=== PATIENT | male | born 1995 | race Caucasian/White ===

== ENCOUNTER 2021-10-27 22:38 | Emergency (ER) | payer MEDICAID, SELFPAY ==
[2021-10-27 22:49] VITALS: PULSE 97; RESP 16; TEMP 37.1; O2SAT 97; BMI 23.0
[2021-10-28 00:05] LABS: Rapid Strep A Test Negative (Negative)
--- NOTE | 2021-10-28 01:13 | W.ED.GENADLT ---
HPI - General Adult General: Chief complaint: General Medical Stated complaint: Sore throat\Chills\weak Time Seen by Provider: 10/28/21 00:41 History of Present Illness: HPI narrative: 26-year-old healthy male who is been sick today. He has had a sore throat. Mild trouble swallowing. Achy, says his eyes burn. Minimal cough or congestion. Onset (ago): day(s) (1) Location: neck Radiation: non-radiation Severity: moderate Quality: stabbing and aching Pain Consistency: constant Relieving factors: none Exacerbating factors: none Associated symptoms: Reports fevers/chills and headache(s); Deny chest pain, confusion, cough, diaphoresis, dyspnea, nausea, rash, palpitations, short of breath or vomiting Review of Systems Const: Denies: diaphoresis Card: Denies: chest pain or palpitations Resp: Denies: dyspnea GI: Denies: nausea or vomiting Skin/Breast: Denies: rash Neuro: Reports: headache(s); Denies: confusion Physical Exam Const: COMMON NORMALS: no acute distress, patient oriented x3 and alert HENMT: COMMON NORMALS: normocephalic, external ears normal and Normal external nose present HEAD & SCALP: normocephalic FACE & SINUS: normal facial exam NOSE: Normal external nose present and Normal nares present EXTERNAL EAR: Yes external ears normal TYMPANIC MEMBRANE: unable to visualize TM (Cerumen impaction bilateral) MOUTH: Normal oral and palatal mucosa present THROAT: abnormal tonsil bilateral erythema, exudates and hypertrophy and uvula laterally displaced to the left (Minimal) Eye: COMMON NORMALS: Equal, round and reactive pupils present and EOMs intact bilaterally CONJUNCTIVA: Yes conjunctival abnormal (Minimal injection) PUPIL: Yes Equal, round and reactive pupils present Chest: COMMONS NORMALS: normal inspection of the chest Resp: COMMON NORMALS: normal respiratory effort, No use of accessory muscles and clear to auscultation bilaterally AUSCULTATION: clear to auscultation bilaterally Cardio: COMMON NORMALS: regular rate and regular rhythm RATE: regular rate RHYTHM: regular rhythm GI: COMMON NORMALS: Normal to inspection, nondistended, normoactive bowel sounds present Neuro: COMMON NORMALS: patient oriented x3 SENSORIUM/ORIENTATION: Yes alert Course Vital Signs: Vital signs: Vital Signs Temperature 98.8 F 10/27/21 22:49 Pulse Rate 97 10/27/21 22:49 Respiratory Rate 16 10/27/21 22:49 Pulse Oximetry 97 10/27/21 22:49 MDM - General Adult MDM Narrative: Medical decision making narrative: Patient does have minimal uvular displacement to the left. There is no clear tonsillar abscess. He can swallow easily. He is afebrile. There is no trismus and be given a dose of steroids here, and placed on antibiotics. This is to cover for potential peritonsillar abscess. He will return if he worsens at all for further imaging if needed. Lab Data: Labs: Lab Results 10/27/21 23:24 Group A Strep Rapi d Negative (Negative) Discharge Plan Discharge Patient Disposition: Home Clinical Impression: Pharyngitis Qualifiers: Pharyngitis/tonsillitis etiology: unspecified etiology Qualified Code(s): J02.9 - Acute pharyngitis, unspecified Condition: Stable Prescriptions: New cephalexin 500 mg capsule 500 mg PO Q6H 10 Days Qty: 40 RF: 0 Discharge Orders: Discharge ED (Routine); Ordered 10/28/21 Ordered By: Simba Ramos Discharge Diet: Advance as tolerated Discharge Activity: Limit activity as instructed Patient Instructions: Pharyngitis (ED) Activity Restrictions/Additional Instructions: Return to the ER for worsening pain despite treatment, worsening in your ability to swallow or handle liquids or solid food, extreme pain with opening your mouth or jaw, fever despite 3-4 doses of antibiotics, other concerning symptoms. Coding Level of Care Code ED Lean Consultant for Benji Kelly
[2021-10-28] MEDS: dexamethasone 4 mg Tablet 10 MG PO (01:51)
[2021-10-28] MEDS: cephALEXin 500 mg Capsule 1000 MG PO (01:51)
[2021-10-28 01:59] VITALS: BP 118/77; PULSE 77; RESP 18; O2SAT 98
[2021-10-29 18:38] LABS: Quest SARS-CoV-2 RNA DETECTED (NOT DETECTED)
--- NOTE | 2021-10-30 08:46 | PC.NURSE ---
Attempted to contacted pt to give results. Has No Voicemail set up.
--- NOTE | 2021-10-30 17:50 | PC.NURSE ---
Pt notified of Positive COVID.
== END 2021-10-28 01:56 | disposition home or self-care (01) ==
PROVIDERS: Physician Assistant; Emergency Provider Emergency Medicine
DX: J02.9 Acute pharyngitis, unspecified (principal); Z20.822 Contact with and (suspected) exposure to COVID-19
CPT/HCPCS: 87081; 87635; 87880; 99283; J8540

== ENCOUNTER 2022-04-12 06:27 | Emergency (ER) | payer BC, MEDICAID, SELFPAY ==
[2022-04-12 06:34] VITALS: BP 148/80; PULSE 106; RESP 20; TEMP 36.9; O2SAT 97; BMI 23.7
--- NOTE | 2022-04-12 06:40 | XR_ITS ---
WS: [id number] Portable AP upright chest, 04/12/2022 Clinical Data: dyspnea/cough Comparison: None. Findings: No nodules, masses or effusions are seen. The heart is normal. The pulmonary vascularity is not increased. No pneumonia or pneumothorax is seen. XR/XR chest 1V portable [id number] Impression: Negative chest.
--- NOTE | 2022-04-12 07:16 | ED_ITS ---
HPI - URI/Sore Throat General: Chief Complaint: Upper Respiratory Infection Stated Complaint: Coughing, runny nose, pressure in chest Time Seen by Provider: 04/12/22 06:31 Source: patient Mode of arrival: ambulatory History of Present Illness: 26-year-old male presents emergency room with complaint of cough runny nose congestion mildly productive cough been going on for a week he tried a few rqrw-fca-[id number] medications with no relief. He has had some loose stools he is not had any anosmia. He did have COVID in October 2021. He has no history of asthma. MD elicited complaint: cough Onset (ago): week(s) (1) Consistency: constant Severity: mild Description of mucous: clear Able to tolerate fluids by mouth: Yes Exacerbating factors: nothing Relieving factors: nothing Associated symptoms: Reports chills, congestion, cough, diarrhea, fever(s), nausea, rhinorrhea and sore throat; Deny abdominal pain, change in voice, chest pain, epistaxis, ear or mastoid pain, headache(s), myalgias, nasal congestion, rash, short of breath, sinus pain, stiffness or vomiting Treatments prior to arrival: acetaminophen and ibuprofen Review of Systems Const: Reports: fever(s), chills and body aches ENMT: Reports: throat pain; Denies: ear or mastoid pain, nasal congestion, epistaxis or sinus pain Card: Denies: chest pain Resp: Reports: dyspnea and productive cough; Denies: non-productive cough GI: Reports: nausea and diarrhea; Denies: abdominal pain or vomiting : Denies: flank pain, difficulty urinating, dysuria, urinary frequency or urinary urgency Skin/Breast: Denies: rash or pruritus Neuro: Denies: headache(s) Physical Exam Const: COMMON NORMALS: no acute distress GENERAL APPEARANCE: cooperative and comfortable ORIENTATION/CONSCIOUSNESS: Yes awake, Yes oriented to person, Yes oriented to place and Yes oriented to time HENMT: COMMON NORMALS: normocephalic, atraumatic and hearing grossly normal bilaterally HEAD & SCALP: normocephalic and atraumatic Neck/C-Spine: COMMON NORMALS: no JVD Resp: COMMON NORMALS: normal respiratory effort, No retractions, No use of accessory muscles and clear to auscultation bilaterally AUSCULTATION: clear to auscultation bilaterally Cardio: COMMON NORMALS: no JVD, regular rate, regular rhythm and No murmurs present (Cardio) RATE: regular rate RHYTHM: regular rhythm GI: COMMON NORMALS: Soft to palpation and No hepatosplenomegaly present AUSCULTATION: Yes normoactive bowel sounds PALPATION: Yes Soft to palpation, No Tenderness to palpation present (GI), No Guarding due to palpation present (GI) and Yes No hepatosplenomegaly present Extremity: COMMON NORMALS: normal to inspection, capillary refill normal, no clubbing, cyanosis or edema, no calf tenderness and no pedal edema Neuro: SENSORIUM/ORIENTATION: Yes oriented to person, Yes oriented to place and Yes oriented to time Skin: COMMON NORMALS: no rashes or lesions noted GENERAL SKIN EXAM: no rashes or lesions noted Course Vital Signs: Vital signs: Vital Signs Temperature 98.5 F 04/12/22 06:34 Pulse Rate 106 H 04/12/22 06:34 Respiratory Rate 20 H 04/12/22 06:34 Blood Pressure 148/80 04/12/22 06:34 Pulse Oximetry 97 04/12/22 06:34 MDM - URI/Sore Throat Medical Decision Making Suspect he actually has a sinusitis there was some concern for COVID we did swab him he had COVID and October of last year. Treat with doxycycline and steroids will contact with results of the COVID testing. Medical Records I reviewed the patient's medical records. Lab Data I reviewed the patient's lab results. Discharge Plan Discharge Patient Disposition: Home Clinical Impression: Sinusitis Condition: Stable Prescriptions: New doxycycline hyclate 100 mg capsule 100 mg PO BID 10 Days Qty: 20 0RF Medrol (Cristi) 4 mg tablets,dose pack See Rx Instructions .ROUTE .COMPLEX Qty: 21 0RF Rx Instructions: orally per package directions Discharge Orders: Discharge ED (Routine); Ordered 04/12/22 Ordered By: Garfield Tran Discharge Diet: Usual diet Discharge Activity: Resume usual activity Patient Instructions: Opioid Safety Activity Restrictions/Additional Instructions: We will contact you with the results of the COVID test done today. Coding Level of Care Code ED Fire Equipment Repairer Inspector for Benji Fwbrian Exam Comprehensive
[2022-04-12 07:28] VITALS: BP 124/82; PULSE 82; RESP 16; O2SAT 96
[2022-04-12 09:25] LABS: Adenovirus Not Detected (NOT DETECT); Chlamydia Pneumoniae Not Detected (NOT DETECT); Coronavirus 229E,HKU1,NL63,OC4 Not Detected (NOT DETECT); Human Metapneumovirus Not Detected (NOT DETECT); Human Rhinovirus/Enterovirus Detected (NOT DETECT); Influenza A Not Detected (NOT DETECT); Influenza A H1 Not Detected (NOT DETECT); Influenza A H1-2009 Not Detected (NOT DETECT); Influenza A H3 Not Detected (NOT DETECT); Influenza B Not Detected (NOT DETECT); Mycoplasma Pneumoniae Not Detected (NOT DETECT); Parainfluenza Virus Type 1 Not Detected (NOT DETECT); Parainfluenza Virus Type 2 Not Detected (NOT DETECT); Parainfluenza Virus Type 3 Not Detected (NOT DETECT); Parainfluenza Virus Type 4 Not Detected (NOT DETECT); Respiratory Syncytial Virus A Not Detected (NOT DETECT); Respiratory Syncytial Virus B Not Detected (NOT DETECT); SARS-COV-2 Not Detected (NOT DETECT)
[2022-04-12 09:39] LABS: Human Metapneumovirus Not Detected (NOT DETECT); Human Rhinovirus/Enterovirus Detected (NOT DETECT); Results from GT
== END 2022-04-12 07:29 | disposition home or self-care (01) ==
PROVIDERS: Emergency Provider Family Medicine
DX: J32.9 Chronic sinusitis, unspecified (principal)
CPT/HCPCS: 71045; 87635; 87801; 99283

== ENCOUNTER 2024-12-14 07:34 | Emergency (ER) | payer SELFPAY ==
[2024-12-14 07:38] VITALS: BP 134/84; PULSE 72; RESP 18; TEMP 36.5; O2SAT 97
--- NOTE | 2024-12-14 07:47 | W.ED.ABDPA2 ---
HPI - Abdominal Pain General: Chief Complaint: Abdominal Pain Stated Complaint: abd pain Time Seen by Provider: 12/14/24 07:38 History of Present Illness: 29-year-old male presents emergency room with complaint of 3 days onset of abdominal pain. He states he has generalized abdominal pain he cannot really focus it to 1 area. He has not had a bowel movement for nearly a week. No nausea or vomiting. He has had some sinus congestion and nasal drainage she says it is actually improved somewhat. Associated Symptoms: Denies chills, dysuria and fever(s) Related Data Home Medications Medication Instructions Recorded Confirmed acetaminophen 325 mg tablet 650 mg PO QID PRN Pain 12/14/24 12/14/24 (Tylenol) [id number]-[id number] 6.25 2 cap PO Q6H PRN Cold Symptoms 12/14/24 12/14/24 mg-15 mg-325 mg capsule fkynivlxwtznx-sinrybmbwlflg-jrhiivfexyg 2 tab PO Q6H PRN Sinus Symptoms 12/14/24 12/14/24 5 mg-325 mg-200 mg tablet (Severe Sinus) Previous Rx's Medication Instructions Recorded pantoprazole 40 mg tablet,delayed 40 mg PO BID #40 tabs 12/14/24 release Allergies Allergy/AdvReac Type Severity Reaction Status Date / Time No Known Allergies Allergy Verified 10/27/21 22:52 Review of Systems Const: Denies: fever(s) or chills ENMT: Reports: nasal discharge and nasal congestion Card: Denies: chest pain Resp: Denies: dyspnea GI: Reports: abdominal pain : Denies: dysuria, urinary frequency or urinary urgency Musc: Denies: neck pain or back pain Skin/Breast: Denies: rash Physical Exam Const: GENERAL APPEARANCE: cooperative ORIENTATION/CONSCIOUSNESS: Yes awake, Yes oriented to person, Yes oriented to place and Yes oriented to time HENMT: COMMON NORMALS: normocephalic, atraumatic and hearing grossly normal bilaterally HEAD & SCALP: normocephalic and atraumatic Resp: COMMON NORMALS: normal respiratory effort, No retractions, No use of accessory muscles and clear to auscultation bilaterally AUSCULTATION: clear to auscultation bilaterally Cardio: COMMON NORMALS: regular rate, regular rhythm and No murmurs present (Cardio) RATE: regular rate RHYTHM: regular rhythm GI: COMMON NORMALS: No hepatosplenomegaly present AUSCULTATION: Yes normoactive bowel sounds PALPATION: Yes Tenderness to palpation present (GI) (Generalized), No Guarding due to palpation present (GI) and Yes No hepatosplenomegaly present Extremity: COMMON NORMALS: normal to inspection, capillary refill normal, no clubbing, cyanosis or edema, no calf tenderness and no pedal edema Neuro: SENSORIUM/ORIENTATION: Yes oriented to person, Yes oriented to place and Yes oriented to time Skin: COMMON NORMALS: no rashes or lesions noted GENERAL SKIN EXAM: no rashes or lesions noted Course Vital Signs: Vital signs: Vital Signs Temperature 97.7 F 12/14/24 07:38 Pulse Rate 72 12/14/24 07:38 Respiratory Rate 16 12/14/24 10:15 Blood Pressure 123/90 12/14/24 10:15 Pulse Oximetry 98 12/14/24 10:15 Oxygen Delivery Me thod Room Air 12/14/24 10:15 MDM - Abdominal Pain Medical Decision Making CT of the abdomen shows signs of a gastric ulcer. It is consistent with the history given. Labs does not show any signs of acute bleed. Will discharge patient home started on Protonix 40 mg twice daily for 10 days and 40 mg daily. Have him follow-up with general surgery will ask case management to make arrangements for follow-up. Return if he has worsening or problems. Medical Records I reviewed the patient's medical records. Lab Data I reviewed the patient's lab results. 12/14/24 07:52 12/14/24 07:52 Labs/Radiology: Radiology Impressions Abdomen/Pelvis CT 12/14/24 07:55 IMPRESSION: 1. Moderately severe submucosal edema involving the gastric antrum most consistent with acute gastritis. If abdominal pain does not resolve with treatment upper endoscopy should be obtained to exclude underlying neoplasm. 2. Normal appendix. 3. No colitis. Laboratory Results WBC 4.78 10^3/uL (3.29-11.43) 12/14/24 07:52 RBC 5.41 10^6/uL (3.85-5.65) 12/14/24 07:52 Hgb 17.00 g/dL (11.27-16.99) H 12/14/24 07:52 Hct 49.9 % (37-53) 12/14/24 07:52 MCV 92.2 fl (82-101) 12/14/24 07:52 MCH 31.4 pg (27-33) 12/14/24 07:52 MCHC 34.1 g/dL (30-55) 12/14/24 07:52 RDW 12.5 % (12.1-15.1) 12/14/24 07:52 Plt Count 152 10^3/cmm (157-399) L 12/14/24 07:52 MPV 9.2 fL (7.4-10.4) 12/14/24 07:52 Neut % (Auto) 51.3 % 12/14/24 07:52 Lymph % (Auto) 35.8 % 12/14/24 07:52 [place] % (Auto) 9.4 % 12/14/24 07:52 Eos % (Auto) 2.9 % 12/14/24 07:52 Baso % (Auto) 0.4 % 12/14/24 07:52 Neut # (Auto) 2.45 10^3/uL (1.8-7.7) 12/14/24 07:52 Lymph # (Auto) 1.7 10^3/uL (0.8-4.8) 12/14/24 07:52 [place] # (Auto) 0.5 10^3/uL (0.2-0.9) 12/14/24 07:52 Eos # (Auto) 0.1 10^3/uL (0.0-0.8) 12/14/24 07:52 Baso # (Auto) 0.0 10^3/uL (0.0-0.1) 12/14/24 07:52 Nucleated RBC % (auto) 0 % 12/14/24 07:52 Nucleated RBCs # 0.0 /100WBC 12/14/24 07:52 Sodium 139 mmol/L (136-145) 12/14/24 07:52 Potassium 4.0 mmol/L (3.5-5.1) 12/14/24 07:52 Chloride 103 mmol/L (98-107) 12/14/24 07:52 Carbon Dioxide 26 mmol/L (22-29) 12/14/24 07:52 Anion Gap 14.0 (5-19) 12/14/24 07:52 BUN 14 mg/dL (6-20) 12/14/24 07:52 Creatinine 0.9 mg/dL (0.7-1.2) 12/14/24 07:52 GFR Calculation 99.8 mL/min (90-130) 12/14/24 07:52 Glucose 87 mg/dL (65-115) 12/14/24 07:52 Calculated Osmolality 288 mOsm/kg (285-295) 12/14/24 07:52 Calcium 9.3 mg/dL (8.5-10.5) 12/14/24 07:52 Total Bilirubin 0.4 mg/dL (0.15-1.2) 12/14/24 07:52 AST 20 U/L (0-40) 12/14/24 07:52 ALT 20 U/L (0-41) 12/14/24 07:52 Alkaline Phosphatase 99 U/L (40-130) 12/14/24 07:52 Total Protein 7.8 g/dL (6.6-8.7) 12/14/24 07:52 Albumin 4.7 g/dL (3.5-5.2) 12/14/24 07:52 Globulin 3.1 g/dL (1.3-4.6) 12/14/24 07:52 Urine Color Yellow (Yellow) 12/14/24 07:52 Urine Appearance Clear (CLEAR) 12/14/24 07:52 Urine pH 5.5 (5-7) 12/14/24 07:52 Ur Specific [place] 1.029 (1.005-1.030) 12/14/24 07:52 Urine Protein Negative (Negative) 12/14/24 07:52 Urine Glucose (UA) Negative (Normal) 12/14/24 07:52 Urine Ketones Negative (Negative) 12/14/24 07:52 Urine Blood Negative (Negative) 12/14/24 07:52 Urine Nitrate Negative (Negative) 12/14/24 07:52 Urine Bilirubin Negative (Negative) 12/14/24 07:52 Urine Urobilinogen 1.0 mg/dL (Negative) 12/14/24 07:52 Ur Leukocyte Esterase Negative (Negative) 12/14/24 07:52 Urine RBC 0-2 /hpf (0-2) 12/14/24 07:52 Urine WBC 0-5 /hpf (0-5) 12/14/24 07:52 Ur Squamous Epith Cells 0-5 /hpf (0-5) 12/14/24 07:52 Amorphous Sediment Not Reportable 12/14/24 07:52 Urine Bacteria None seen /hpf (NONE) 12/14/24 07:52 Hyaline Casts 1.21 /lpf 12/14/24 07:52 All radiology interpretation(s) finalized by discharge Discharge Plan Discharge Patient Disposition: Home Clinical Impression: Gastric ulcer Condition: Stable Prescriptions: New pantoprazole 40 mg tablet,delayed release (DR/EC) 40 mg PO BID Qty: 40 0RF Rx Instructions: 1 p.o. twice daily x 10 days and 1 p.o. daily No Action acetaminophen [Tylenol] 325 mg Tablet 650 mg PO QID PRN (Reason: Pain) Night Time 6.25-15-325 mg Capsule 2 cap PO Q6H PRN (Reason: Cold Symptoms) Severe Sinus 5-325-200 mg Tablet 2 tab PO Q6H PRN (Reason: Sinus Symptoms) Discharge Orders: Discharge ED (Routine); Ordered 12/14/24 Ordered By: Garfield Tran Discharge Diet: As Directed Patient Instructions: Diet for Stomach Ulcers and Gastritis (ED), GERD (Gastroesophageal Reflux Disease) (ED), Opioid Safety, Pain Management Activity Restrictions/Additional Instructions: Thank you for choosing [facility] for your healthcare needs today. It is very important that you follow up as instructed or that you return to the Emergency Department should you have concerns or if your condition changes or worsens in any way. You were seen in the emergency room for abdominal pain. Laboratory test did not show significant abnormality the CT showed signs of a gastric ulcer. Recommend they start on pantoprazole 40 mg 1 pill twice a day for 10 days and once daily. foundry manager will make arrangements for you to follow-up with general surgery depending on how you respond to the medications you may need further evaluation including possible EGD. Coding Level of Care Code ED Underwriting Sales Representative for Benji Kelly
--- NOTE | 2024-12-14 07:55 | CT_ITS ---
WS: [id number] CT ABDOMEN AND PELVIS WITH CONTRAST HISTORY: abd pain TECHNIQUE: Imaging performed of the abdomen and pelvis with IV contrast. Single phase imaging of the abdomen. Coronal and sagittal reformats are submitted. All CT scans at [facility] use at [address] one of these dose optimization techniques: automated exposure control; mA and/or kV adjustment per patient size (includes targeted exams where dose is matched to clinical indication); or iterative re construction. IV CONTRAST: Omnipaque 350; 100 mL IV. Oral contrast: No DLP: 453.73 mGy.cm COMPARISON: None available. Lower thorax: Lung bases are clear. Heart is normal size. No hiatal hernia. Liver/biliary system: Normal size with no intrahepatic dilatation. Gallbladder: Normal. No gallstones or wall thickening. No pericholecystic fluid. Pancreas: Normal size pancreas and pancreatic duct. No adjacent inflammation. Spleen: Normal size spleen. No mass or infarct. A few granuloma. Adrenal glands: Normal. Right kidney: Normal. Left kidney: Normal. Aorta: Normal. Lymphadenopathy: None. Free fluid: None. GI tract: Segment of gastric mucosa/antrum with decreased submucosal enhancement and mild mucosal hyp erenhancement. Abnormal segment extends over a length of 3.8 cm. There are a few tiny foci of air but these appear to be within the lumen of the stomach. No definite ulceration or perforation. No small bowel obstruction. Normal appendix. No colitis. Abdominal wall: Unremarkable abdominal wall. No hernia. Pelvis: No free fluid or adenopathy within the pelvis. Bones: Unremarkable. CT/CT abdomen pelvis w con* [id number] IMPRESSION: 1. Moderately severe submucosal edema involving the gastric antrum most consis tent with acute gastritis. If abdominal pain does not resolve with treatment up per endoscopy should be obtained to exclude underlying neoplasm. 2. Normal appendix. 3. No colitis.
[2024-12-14 07:56] VITALS: BP 134/82; RESP 16; O2SAT 98
[2024-12-14 08:08] LABS: Basophils % 0.4 %; Eosinophils # 0.1 10^3/uL (0.0-0.8); Eosinophils % 2.9 %; Hematocrit 49.9 % (37-53); Lymphocytes # 1.7 10^3/uL (0.8-4.8); Lymphocytes % 35.8 %; Mean Corpuscular HGB Conc 34.1 g/dL (30-55); Mean Corpuscular Hemoglobin 31.4 pg (27-33); Mean Corpuscular Volume 92.2 fl (82-101); Mean Platelet Volume 9.2 fL (7.4-10.4); Monocytes # 0.5 10^3/uL (0.2-0.9); Monocytes % 9.4 %; Neutrophils # 2.45 10^3/uL (1.8-7.7); Neutrophils % 51.3 %; Nucleated Red Blood Cells % 0 %; Platelet Count 152 10^3/cmm (157-399); Red Blood Count 5.41 10^6/uL (3.85-5.65); Red Cell Distribution Width 12.5 % (12.1-15.1); White Blood Count 4.78 10^3/uL (3.29-11.43)
[2024-12-14 08:20] LABS: Alanine Aminotransferase 20 U/L (0-41); Albumin Level 4.7 g/dL (3.5-5.2); Alkaline Phosphatase 99 U/L (40-130); Aspartate Amino Transferase 20 U/L (0-40); Bilirubin Urine Negative (Negative); Blood Urea Nitrogen 14 mg/dL (6-20); Blood Urine Negative (Negative); Calcium 9.3 mg/dL (8.5-10.5); Carbon Dioxide 26 mmol/L (22-29); Chloride 103 mmol/L (98-107); Creatinine Clr Calc Pharmacy 134.1449; Globulin 3.1 g/dL (1.3-4.6); Glomerular Filtration Rate 99.8 mL/min (90-130); Glucose 87 mg/dL (65-115); Glucose Urine UA Negative (Normal); Ketones Urine Negative (Negative); Leukocyte Esterase Urine Negative (Negative); Nitrate Urine Negative (Negative); Osmolality Calculated 288 mOsm/kg (285-295); Protein Urine Negative (Negative); Sodium 139 mmol/L (136-145); Specific Gravity, Urine 1.029 (1.005-1.030); Total Bilirubin 0.4 mg/dL (0.15-1.2); Total Protein 7.8 g/dL (6.6-8.7); Urine Appearance Clear (CLEAR); Urine Color Yellow (Yellow); pH Urine 5.5 (5-7)
[2024-12-14 08:23] LABS: Add Urine Microscopic? YES; Bacteria Urine None Seen /hpf; Hyaline Casts Urine 1.21 /lpf; RBC Urine 0-2 /hpf (0-2); Squamous Epithelial Cell Urine 0-5 /hpf (0-5); WBC Urine 0-5 /hpf (0-5)
[2024-12-14 08:44] VITALS: BP 117/73; RESP 16; O2SAT 99
[2024-12-14 10:15] VITALS: BP 123/90; RESP 16; O2SAT 98
[2024-12-14 10:24] VITALS: BP 123/90; PULSE 65; RESP 16; O2SAT 99
--- NOTE | 2024-12-16 08:52 | DCPLANNER ---
Message sent to General Surgery for follow up on Gastric ulcer
== END 2024-12-14 10:25 | disposition home or self-care (01) ==
PROVIDERS: Emergency Provider Family Medicine
DX: K25.9 Gastric ulcer, unspecified as acute or chronic, without hemorrhage or perforation (principal)
CPT/HCPCS: 74177; 80053; 81001; 85025; 99284

== ENCOUNTER 2025-01-11 07:48 | Day surgery (SDC) | payer OTHER, SELFPAY ==
--- NOTE | 2025-01-10 12:27 | ANES.PREANE2 ---
Pre-Anesthetic Assessment Height/Weight: Height 5 ft 10 in Preop Diagnosis: ulcers Operation Date: 01/11/25 08:45 Proposed Procedures p EGD 24107, K25.9(Not Applicable) - London Mckeon MD Was Beta [place] taken within 24 hours: N/A Was Clonidine taken within 24 hours: N/A Social Alcohol, No alcohol and No tobacco Occasional alcohol use, quit smoking 2 years ago Exam alert, oriented x 3, clear to auscultation bilaterally and regular rate & rhythm Airway Submandibular: within normal limits Cervical ROM: within normal limits Mallampati: Class II Dentition: full Anesthetic Plan ASA status: 2 Anesthesia: MAC Other: No prior issues with anesthesia NPO since yesterday evening Denies any cardiac or pulmonary issues Prior seizures, no AEDs. Last seizure 6 years ago Patient has been experiencing symptoms of stomach ulcers No home meds METs greater than 4 Plan for MAC anesthetic Medications/Allergies Home Medications ?Medication ?Instructions ?Recorded ?Confirmed ?Last Taken ?Type acetaminophen 325 mg tablet 650 mg PO QID PRN Pain 12/14/24 01/07/25 01/06/25 History (Tylenol) Allergies Allergy/AdvReac Type Severity Reaction Status Date / Time No Known Allergies Allergy Verified 01/07/25 09:29 [facility] Anesthesia Social History (Updated 12/18/24 @ 10:53 by CARLA Garcia) Smoking and tobacco/nicotine status: current every day tobacco/nicotine user cigarettes [ Other cigarette details: uses nicotine ptaches] Data Anesthesia Cardiac Studies: No Data to Display
[2025-01-11 08:05] VITALS: BP 123/73; PULSE 70; RESP 18; TEMP 36.5; O2SAT 97; BMI 24.4
--- NOTE | 2025-01-11 10:09 | W.PM.OPSUD ---
Surgery/Procedure H&P Update DATE OF PROCEDURE: January 11, 2025 DATE H&P PERFORMED: 12/18/24 H&P UPDATE INFORMATION: I have reviewed H&P completed within last 30 days, I have examined patient prior to procedure and No changes to prior documentation PREOP DIAGNOSIS: ulcers PLANNED PROCEDURE: Operation Date: 01/11/25 08:45 Proposed Procedures p EGD 65286, K25.9(Not Applicable) - London Mckeon MD
[2025-01-11 10:31] VITALS: BP 113/69; PULSE 84; RESP 16; TEMP 36.5; O2SAT 96
[2025-01-11 10:49] VITALS: BP 121/80; PULSE 70; RESP 18; O2SAT 98
[2025-01-11 11:13] VITALS: BP 125/95; PULSE 66; RESP 18; O2SAT 98
--- NOTE | 2025-01-11 11:25 | ANE.PACU2 ---
Inpatient post-anesthesia follow up: Airway intact: Yes Vital signs: Temperature 97.7 F Pulse Rate 66 Respiratory Rate 18 Blood Pressure 125/95 Pulse Oximetry 98 Oxygen Delivery Me thod Room Air Oxygen Flow Rate Fraction of Inspir ed Oxygen Hydration adequate: Yes Nausea and vomiting: No Pain level: 1 Mental status: Baseline
== END 2025-01-11 11:25 | disposition home or self-care (01) ==
PROVIDERS: Visit Provider Student in an Organized Health Care Education/Training Program
PROC: 0DJ08ZZ Inspection of Upper Intestinal Tract, Via Natural or Artificial Opening Endoscopic (ICD-10-PCS; principal; 2025-01-11 08:45)
DX: K29.50 Unspecified chronic gastritis without bleeding (principal); K25.9 Gastric ulcer, unspecified as acute or chronic, without hemorrhage or perforation; K52.9 Noninfective gastroenteritis and colitis, unspecified; F17.210 Nicotine dependence, cigarettes, uncomplicated; R12 Heartburn
CPT/HCPCS: 43239; 88305; J2250; J2704

== ENCOUNTER 2025-04-26 05:55 | Emergency (ER) | payer OTHER, SELFPAY ==
[2025-04-26 05:58] VITALS: BP 142/84; PULSE 84; RESP 16; TEMP 36.8; O2SAT 97; BMI 24.4
--- NOTE | 2025-04-26 06:01 | W.ED.ABDPA2 ---
HPI - Abdominal Pain General: Chief Complaint: Nausea/Vomiting/Diarrhea Stated Complaint: n,v,fevers,abd pain Time Seen by Provider: 04/26/25 06:00 History of Present Illness: 29-year-old male presents to the emergency room complaining nausea vomiting fever abdominal pain that began overnight. He reports he vomited 3 times last that he had earlier [employer] failure complaining of sore throat cough shortness of breath as well. No rash. No hematemesis or coffee-ground emesis. Patient states he had stomach ulcers had an EGD within the last year. No productive cough. No other abdominal surgeries. Associated Symptoms: Reports fever(s), nausea and vomiting; Denies chills, coffee ground emesis, dysuria, hematochezia, hematemesis and melena Related Data Home Medications ?Medication ?Instructions ?Recorded ?Confirmed acetaminophen 325 mg tablet 650 mg PO QID PRN Pain 12/14/24 04/26/25 (Tylenol) Previous Rx's ?Medication ?Instructions ?Recorded promethazine 25 mg tablet 25 mg PO Q6H PRN nausea and 04/26/25 vomiting #20 tabs Allergies Allergy/AdvReac Type Severity Reaction Status Date / Time No Known Allergies Allergy Verified 01/22/25 08:17 Review of Systems Const: Reports: fever(s); Denies: chills Card: Denies: chest pain Resp: Reports: dyspnea, non-productive cough and chest congestion GI: Reports: abdominal pain, nausea and vomiting; Denies: hematemesis, coffee ground emesis, rectal pain, rectal swelling, hematochezia or melena : Denies: dysuria, urinary frequency or urinary urgency Musc: Denies: neck pain or back pain Skin/Breast: Denies: rash [facility] ED PFSH: Social History Smoking and tobacco/nicotine status: never used tobacco/nicotine Physical Exam Const: GENERAL APPEARANCE: cooperative ORIENTATION/CONSCIOUSNESS: Yes awake, Yes oriented to person, Yes oriented to place and Yes oriented to time HENMT: COMMON NORMALS: normocephalic, atraumatic and hearing grossly normal bilaterally HEAD & SCALP: normocephalic and atraumatic OTHER: Mild erythema posterior pharyngeal Resp: COMMON NORMALS: normal respiratory effort, No retractions, No use of accessory muscles and clear to auscultation bilaterally AUSCULTATION: clear to auscultation bilaterally Cardio: COMMON NORMALS: regular rate, regular rhythm and No murmurs present (Cardio) RATE: regular rate RHYTHM: regular rhythm GI: COMMON NORMALS: Soft to palpation and No hepatosplenomegaly present AUSCULTATION: Yes normoactive bowel sounds PALPATION: Yes Soft to palpation, No Tenderness to palpation present (GI), No Guarding due to palpation present (GI) and Yes No hepatosplenomegaly present Extremity: COMMON NORMALS: normal to inspection, capillary refill normal, no clubbing, cyanosis or edema, no calf tenderness and no pedal edema Neuro: SENSORIUM/ORIENTATION: Yes oriented to person, Yes oriented to place and Yes oriented to time Skin: COMMON NORMALS: no rashes or lesions noted GENERAL SKIN EXAM: no rashes or lesions noted Course Vital Signs: Vital signs: Vital Signs Temperature 98.3 F 04/26/25 05:58 Pulse Rate 86 04/26/25 08:47 Respiratory Rate 18 04/26/25 06:33 Blood Pressure 122/71 04/26/25 08:47 Pulse Oximetry 98 04/26/25 08:47 Oxygen Delivery Me thod Room Air 04/26/25 08:47 MDM - Abdominal Pain Medical Decision Making Repeat exam mild improvement after fluids. Patient has more focal pain now in the right lower quadrant with pain at McBurney's point and pain with percussion. CT ordered. CT abdomen pelvis does not show any acute pathology. Other labs reviewed no significant findings discharge patient home clinical data 24 to 48 hours advance as tolerated promethazine as needed return if he has further problems reviewed with the patient Differential Diagnosis Likely abdominal pain, acute appendicitis, calculus of kidney, constipation, gastroenteritis, pancreatitis and small bowel obstruction Medical Records I reviewed the patient's medical records. Lab Data I reviewed the patient's lab results. 04/26/25 06:10 04/26/25 06:10 Labs/Radiology: Radiology Impressions Chest X-Ray 04/26/25 06:07 IMPRESSION: No acute findings. Abdomen/Pelvis CT 04/26/25 07:14 IMPRESSION: 1. No evidence of acute appendicitis. Normal appendix. 2. Small esophageal hiatal hernia. 3. No other acute findings. Laboratory Results WBC 13.27 10^3/uL (3.29-11.43) H 04/26/25 06:10 RBC 5.04 10^6/uL (3.85-5.65) 04/26/25 06:10 Hgb 16.00 g/dL (11.27-16.99) 04/26/25 06:10 Hct 46.9 % (37-53) 04/26/25 06:10 MCV 93.1 fl (82-101) 04/26/25 06:10 MCH 31.7 pg (27-33) 04/26/25 06:10 MCHC 34.1 g/dL (30-55) 04/26/25 06:10 RDW 13.2 % (12.1-15.1) 04/26/25 06:10 Plt Count 183 10^3/cmm (157-399) 04/26/25 06:10 MPV 9.3 fL (7.4-10.4) 04/26/25 06:10 Neut % (Auto) 78.5 % 04/26/25 06:10 Lymph % (Auto) 10.8 % 04/26/25 06:10 [place] % (Auto) 9.0 % 04/26/25 06:10 Eos % (Auto) 0.9 % 04/26/25 06:10 Baso % (Auto) 0.4 % 04/26/25 06:10 Neut # (Auto) 10.42 10^3/uL (1.8-7.7) H 04/26/25 06:10 Lymph # (Auto) 1.4 10^3/uL (0.8-4.8) 04/26/25 06:10 [place] # (Auto) 1.2 10^3/uL (0.2-0.9) H 04/26/25 06:10 Eos # (Auto) 0.1 10^3/uL (0.0-0.8) 04/26/25 06:10 Baso # (Auto) 0.1 10^3/uL (0.0-0.1) 04/26/25 06:10 Nucleated RBC % (auto) 0 % 04/26/25 06:10 Nucleated RBCs # 0.0 /100WBC 04/26/25 06:10 Sodium 141 mmol/L (136-145) 04/26/25 06:10 Potassium 4.4 mmol/L (3.5-5.1) 04/26/25 06:10 Chloride 106 mmol/L (98-107) 04/26/25 06:10 Carbon Dioxide 25 mmol/L (22-29) 04/26/25 06:10 Anion Gap 14.4 (5-19) 04/26/25 06:10 BUN 10 mg/dL (6-20) 04/26/25 06:10 Creatinine 0.8 mg/dL (0.7-1.2) 04/26/25 06:10 GFR Calculation 114.3 mL/min (90-130) 04/26/25 06:10 Glucose 110 mg/dL (65-115) 04/26/25 06:10 Calculated Osmolality 292 mOsm/kg (285-295) 04/26/25 06:10 Calcium 9.0 mg/dL (8.5-10.5) 04/26/25 06:10 Total Bilirubin 0.8 mg/dL (0.15-1.2) 04/26/25 06:10 AST 21 U/L (0-40) 04/26/25 06:10 ALT 30 U/L (0-41) 04/26/25 06:10 Alkaline Phosphatase 95 U/L (40-130) 04/26/25 06:10 Total Protein 7.3 g/dL (6.6-8.7) 04/26/25 06:10 Albumin 4.3 g/dL (3.5-5.2) 04/26/25 06:10 Globulin 3.0 g/dL (1.3-4.6) 04/26/25 06:10 Lipase 32 U/L (13-60) 04/26/25 06:10 Urine Color Yellow (Yellow) 04/26/25 06:16 Urine Appearance Clear (CLEAR) 04/26/25 06:16 Urine pH 8.0 (5-7) A 04/26/25 06:16 Ur Specific [place] 1.014 (1.005-1.030) 04/26/25 06:16 Urine Protein Negative (Negative) 04/26/25 06:16 Urine Glucose (UA) Negative (Normal) 04/26/25 06:16 Urine Ketones Negative (Negative) 04/26/25 06:16 Urine Blood Negative (Negative) 04/26/25 06:16 Urine Nitrate Negative (Negative) 04/26/25 06:16 Urine Bilirubin Negative (Negative) 04/26/25 06:16 Urine Urobilinogen 0.2 mg/dL (Negative) 04/26/25 06:16 Ur Leukocyte Esterase Negative (Negative) 04/26/25 06:16 Urine RBC 0-2 /hpf (0-2) 04/26/25 06:16 Urine WBC 0-5 /hpf (0-5) 04/26/25 06:16 Ur Squamous Epith Cells 0-5 /hpf (0-5) 04/26/25 06:16 Amorphous Sediment Not Reportable 04/26/25 06:16 Urine Bacteria None seen /hpf (NONE) 04/26/25 06:16 Hyaline Casts 0-4 /lpf H 04/26/25 06:16 Influenza A (PCR) Negative (Negative) 04/26/25 06:16 Influenza Type B (PCR) Negative (Negative) 04/26/25 06:16 RSV (PCR) Negative (Negative) 04/26/25 06:16 SARS-CoV-2 (PCR) Negative (Negative) 04/26/25 06:16 Group A Strep Rapid Negative (Negative) 04/26/25 06:10 All radiology interpretation(s) finalized by discharge Discharge Plan Discharge Patient Disposition: Home Clinical Impression: Gastroenteritis Condition: Stable Prescriptions: New promethazine 25 mg tablet 25 mg PO Q6H PRN (Reason: nausea and vomiting) Qty: 20 0RF No Action acetaminophen [Tylenol] 325 mg Tablet 650 mg PO QID PRN (Reason: Pain) Discharge Orders: Discharge ED (Routine); Ordered 04/26/25 Ordered By: Garfield Tran Discharge Diet: Clear Liquid Discharge Activity: Increase activity as tolerated Patient Instructions: Clear Liquid Diet (ED), Gastroenteritis (ED), Acute Nausea and Vomiting (ED), Opioid Safety, Pain Management Activity Restrictions/Additional Instructions: Thank you for choosing [facility] for your healthcare needs today. It is very important that you follow up as instructed or that you return to the Emergency Department should you have concerns or if your condition changes or worsens in any way. You were seen in the emergency room with complaints of abdominal pain nausea and vomiting. Strep test and other laboratory tests did not show significant abnormality CT of your abdomen was unremarkable for acute pathology. Recommend clear liquid diet for next 24 to 48 hours given promethazine to use as needed. Ventured out as tolerated symptoms change or worsen return to the emergency room Stand Alone Forms: Work/School Release Print Language: Belarusian Coding Level of Care Code ED [facility] And M Supervisor for Benji Kelly
[2025-04-26] MEDS: ondansetron 2 mg/ML SDV 2 mL 4 MG IVP (06:07)
[2025-04-26] MEDS: sodium chloride 0.9% 1,000 ML 999 ML IV (06:07)
--- NOTE | 2025-04-26 06:07 | XRR_ITS ---
PROCEDURE INFORMATION: Exam: XR Chest Exam date and time: 04/26/2025 6:09 AM Age: 29 years old Clinical indication: C/O cough; Additional info: Dyspnea/cough TECHNIQUE: Imaging protocol: Radiologic exam of the chest. Views: 1 view. COMPARISON: CR XR chest 1V portable [id number] 04/12/2022 7:06 AM FINDINGS: Lungs: Unremarkable. No consolidation. Pleural spaces: Unremarkable. No pleural effusion. No pneumothorax. Heart/Mediastinum: Unremarkable. No cardiomegaly. Bones/joints: Unremarkable. XR/XR chest 1V portable [id number] IMPRESSION: No acute findings.
[2025-04-26 06:20] LABS: Basophils # 0.1 10^3/uL (0.0-0.1); Basophils % 0.4 %; Eosinophils # 0.1 10^3/uL (0.0-0.8); Eosinophils % 0.9 %; Hematocrit 46.9 % (37-53); Lymphocytes # 1.4 10^3/uL (0.8-4.8); Lymphocytes % 10.8 %; Mean Corpuscular HGB Conc 34.1 g/dL (30-55); Mean Corpuscular Hemoglobin 31.7 pg (27-33); Mean Corpuscular Volume 93.1 fl (82-101); Mean Platelet Volume 9.3 fL (7.4-10.4); Monocytes # 1.2 10^3/uL (0.2-0.9); Neutrophils # 10.42 10^3/uL (1.8-7.7); Neutrophils % 78.5 %; Nucleated Red Blood Cells % 0 %; Platelet Count 183 10^3/cmm (157-399); Red Blood Count 5.04 10^6/uL (3.85-5.65); Red Cell Distribution Width 13.2 % (12.1-15.1); White Blood Count 13.27 10^3/uL (3.29-11.43)
[2025-04-26 06:23] VITALS: PULSE 81; RESP 17; O2SAT 100
[2025-04-26 06:33] VITALS: BP 129/76; PULSE 79; RESP 18; O2SAT 98
[2025-04-26 06:33] LABS: Rapid Strep A Test Negative (Negative)
[2025-04-26 06:44] LABS: Alanine Aminotransferase 30 U/L (0-41); Albumin Level 4.3 g/dL (3.5-5.2); Alkaline Phosphatase 95 U/L (40-130); Anion Gap 14.4 (5-19); Aspartate Amino Transferase 21 U/L (0-40); Blood Urea Nitrogen 10 mg/dL (6-20); Carbon Dioxide 25 mmol/L (22-29); Chloride 106 mmol/L (98-107); Creatinine Clr Calc Pharmacy 152.6612; Glomerular Filtration Rate 114.3 mL/min (90-130); Glucose 110 mg/dL (65-115); Lipase 32 U/L (13-60); Osmolality Calculated 292 mOsm/kg (285-295); Potassium 4.4 mmol/L (3.5-5.1); Sodium 141 mmol/L (136-145); Total Bilirubin 0.8 mg/dL (0.15-1.2); Total Protein 7.3 g/dL (6.6-8.7)
[2025-04-26 06:54] LABS: Bilirubin Urine Negative (Negative); Blood Urine Negative (Negative); Glucose Urine UA Negative (Normal); Ketones Urine Negative (Negative); Leukocyte Esterase Urine Negative (Negative); Nitrate Urine Negative (Negative); Protein Urine Negative (Negative); Specific Gravity, Urine 1.014 (1.005-1.030); Urine Appearance Clear (CLEAR); Urobilinogen Urine 0.2 mg/dL (Negative)
[2025-04-26 06:59] LABS: Add Urine Microscopic? YES; Bacteria Urine None Seen /hpf; Hyaline Casts Urine 0-4 /lpf; RBC Urine 0-2 /hpf (0-2); Squamous Epithelial Cell Urine 0-5 /hpf (0-5); WBC Urine 0-5 /hpf (0-5)
[2025-04-26 07:00] LABS: Urine Color Yellow (Yellow)
--- NOTE | 2025-04-26 07:14 | CT_ITS ---
WS: [id number] CT ABDOMEN PELVIS TECHNIQUE: Contrast-enhanced CT of the abdomen and pelvis with coronal and sagittal reformatted images. CLINICAL INFORMATION: RLQ abd pain COMPARISON: 12/14/2024 DLP: 339.[address] scans at [facility] use at least one of these dose optimization techniques: automated exposure control; mA and/or kV adjustment per patient size (includes targeted exams where dose is matched to clinical indication); or iterative reconstruction. FINDINGS: Normal appendix in the RIGHT lower quadrant. No evidence of acute appendicitis. Lung bases are well aerated. Normal liver. Portal vein and splenic vein are patent. Splenic granulomas. Small esophageal hiatal hernia. Normal gallbladder. Normal pancreatic parenchymal enhancement. Normal caliber abdominal aorta. Adrenal glands are normal. Normal renal parenchymal enhancement. No hydronephrosis. Tiny fat-containing umbilical hernia. No free fluid in the abdomen or pelvis. CT/CT abdomen pelvis w con* [id number] IMPRESSION: 1. No evidence of acute appendicitis. Normal appendix. 2. Small esophageal hiatal hernia. 3. No other acute findings.
[2025-04-26 07:40] LABS: Influenza A NEGATIVE (Negative); Influenza B NEGATIVE (Negative); Respiratory Syncytial Virus Ce NEGATIVE (Negative); SARS-CoV-2 PCR NEGATIVE (Negative)
[2025-04-26] MEDS: iohexol 350 mg/mL 500 mL Btl (per mL) IV (07:49)
[2025-04-26 08:47] VITALS: BP 122/71; PULSE 86; O2SAT 98
[2025-04-26 09:35] VITALS: BP 118/68; PULSE 90; O2SAT 98
== END 2025-04-26 09:36 | disposition home or self-care (01) ==
PROVIDERS: Emergency Provider Family Medicine
DX: K52.9 Noninfective gastroenteritis and colitis, unspecified (principal); Z11.52 Encounter for screening for COVID-19
CPT/HCPCS: 71045; 74177; 80053; 81001; 83690; 85025; 87081; 87637; 87880; 96374; 99285; J2405; J7030